=== PATIENT | female | born 1960 | race Two or more races ===

== ENCOUNTER 2023-01-31 14:17 | Emergency (ER) | payer MEDICARE, OTHER ==
[~2023-01-31] VITALS: Ht 160 cm; Wt 73.0 kg
[2023-01-31 15:31] LABS: Basophils # (auto) 0 10 ^3/uL (0-0.2); Eosinophils # (auto) 0 10 ^3/uL (0-0.8); Lymphocytes # (auto) 0.2 10 ^3/uL (0.4-5.4); Monocytes # (auto) 0.1 10 ^3/uL (0-1.3); Neutrophils # (auto) 4.2 10 ^3/uL (1.6-8.6); White Blood Cell 4.5 10^3/uL (4.4-10.8)
[2023-01-31 15:33] LABS: Basophils % (auto) 0.2 % (0.0-2.0); Lymphocytes % (auto) 5.2 % (10.0-50.0); Mean Corpuscular Hemoglobin 31.2 pg (28.0-32.0); Mean Corpuscular Hgb Conc. 32.2 g/dL (32.0-36.0); Mean Corpuscular Volume 96.9 fL (80.0-100.0); Monocytes % (auto) 1.2 % (0.0-12.0); Neutrophils % (auto) 93.4 % (37.0-80.0); Red Blood Cells 2.58 10^6/uL (4.0-5.20)
[2023-01-31 16:17] LABS: Albumin 3.8 g/dL (3.4-5.0); Calcium 8.7 mg/dL (8.5-10.1); Potassium 5.3 mmol/L (3.5-5.1)
[2023-01-31 16:21] LABS: BUN/Creatinine Ratio 8.7 (10.0-20.0); Bilirubin, Total 0.6 mg/dL (0.2-1.0); Total Protein 7.9 g/dL (6.4-8.2)
[2023-01-31 16:55] VITALS: BP 193/73
[2023-01-31] MEDS ORDERED: CALCIUM GLUC 1,000mg/50ml-NS 50 ML IV ONE (17:00)
[2023-01-31] MEDS ORDERED: InsuLIN REG 1unit/0.01ml Soln (100units/ml) IV ONE (17:00)
== END 2023-01-31 18:30 | disposition left against medical advice (07) ==
LOC: ER 14:17 → EDBD 14:17 → ER 18:30
DX: E11.22 Type 2 diabetes mellitus with diabetic chronic kidney disease (principal); I12.0 Hypertensive chronic kidney disease with stage 5 chronic kidney disease or end stage renal disease; N18.6 End stage renal disease; R56.9 Unspecified convulsions; I95.1 Orthostatic hypotension; E87.5 Hyperkalemia; Z99.2 Dependence on renal dialysis; J44.9 Chronic obstructive pulmonary disease, unspecified; Z89.511 Acquired absence of right leg below knee
CPT/HCPCS: 36415; 70450; 80053; 85025; 93005

== ENCOUNTER 2024-01-14 18:29 | Emergency (ER) | payer MEDICARE, MEDICAID ==
[~2024-01-14] VITALS: Ht 152.4 cm; Wt 78.0 kg
[2024-01-14] MEDS ORDERED: EPINEPHrine HCL 1 MG/10 ML SYRG ONE (18:43)
[2024-01-14] MEDS ORDERED: EPINEPHrine HCL 250 ML IV ONE (18:45)
[2024-01-14] MEDS ORDERED: SODIUM BICARB 8.4% 50Meq/50ml SYR INJ ONE (18:47)
[2024-01-14 19:15] VITALS: PULSE 0; RESP 0; O2SAT 100
== END 2024-01-14 19:05 ==
LOC: ER 18:29
DX: I46.9 Cardiac arrest, cause unspecified (principal); E11.22 Type 2 diabetes mellitus with diabetic chronic kidney disease; N18.6 End stage renal disease; R06.89 Other abnormalities of breathing; Z88.6 Allergy status to analgesic agent
CPT/HCPCS: 31500; 36600; 82805; 92950; 99291; J0171